=== PATIENT | male | born 1965 | race Caucasian/White ===

== ENCOUNTER 2017-10-03 06:08 | Emergency (ER) | payer OTHER ==
[2017-10-03] MEDS ORDERED: NORMAL SALINE 1000 ML 1,000 ML IV ONE ×2 (06:43→08:41)
[2017-10-03] MEDS ORDERED: MORPHINE SULFATE 10 MG/ML INJ IV ONE (06:56)
[2017-10-03] MEDS ORDERED: ONDANSETRON HCL INJ/PF 4 MG/2 ML SDV IV ONE (06:56)
--- NOTE | 2017-10-03 07:27 | RADIOLOGY REPORT (SQ) ---
EXAM DESCRIPTION: CT ABDOMEN WITHOUT IV CONTRAST CLINICAL HISTORY: 52 years Male, rlq pain Comparison: None. Technique: No contrast. Coronal and sagittal reformat. This exam was performed according to our departmental dose-optimization program, which includes automated exposure control, adjustment of the mA and/or kV according to patient size and/or use of iterative reconstruction technique.[facility]: Dose Right [facility]: CareDose [facility]: Dose Right [facility]: Teradose 4D [facility]: [employer] LIMITATIONS: None. Findings: Small calcified granuloma the spleen. Mild perinephric fat stranding. Small colonic diverticulosis. Mild disc desiccation. Normal appendix. Small bilateral inguinal fat only hernia. 0.3 center calcified granuloma right lower lobe. Unenhanced lower thorax, abdominopelvic structures, and musculoskeleton appear otherwise grossly unremarkable. Impression: No acute findings.
[2017-10-03 08:32] LABS: ABSOLUTE LYMPHOCYTES (AUTO) 0.9 10^3/uL (0.5-4.7); ABSOLUTE MONOCYTES (AUTO) 0.2 10^3/uL (0.1-1.4); ABSOLUTE NEUT (AUTO) 6.4 10^3/uL (1.7-8.2); BASOPHILS % (AUTO) 0.3 % (0-2); EOSINOPHILS % (AUTO) 0.2 % (0-6); HEMATOCRIT 47.8 % (37.9-51.0); HEMOGLOBIN 16.4 g/dL (13.5-17.0); LYMPHOCYTES % (AUTO) 11.4 % (13-45); MEAN CORPUSCULAR HEMOGLOBIN 30.6 pg (27.0-33.4); MEAN CORPUSCULAR HGB CONC 34.2 g/dL (32.0-36.0); MEAN CORPUSCULAR VOLUME 90 fl (80-97); PLATELET COUNT 263 10^3/uL (150-450); RED BLOOD COUNT 5.34 10^6/uL (4.35-5.55); RED CELL DISTRIBUTION WIDTH 13.2 % (11.5-14.0); SEGMENTED NEUTROPHILS % (AUTO) 85.1 % (42-78); TOTAL CELLS COUNTED % (AUTO) 100 %; WHITE BLOOD COUNT 7.5 10^3/uL (4.0-10.5)
[2017-10-03] MEDS ORDERED: KETOROLAC TROMETHAMINE INJ/PF 30 MG/1 ML SDV IV ONE (08:46)
[2017-10-03 08:59] LABS: ALANINE AMINOTRANSFERASE 31 U/L (21-72); ALBUMIN 4.7 g/dL (3.5-5.0); ALKALINE PHOSPHATASE 90 U/L (38-126); ANION GAP 12 (5-19); ASPARTATE AMINO TRANSFERASE 24 U/L (17-59); BILIRUBIN,DIRECT 0.2 mg/dL (0.0-0.4); BILIRUBIN,TOTAL 0.8 mg/dL (0.2-1.3); BLOOD UREA NITROGEN 20 mg/dL (7-20); CALCIUM 9.9 mg/dL (8.4-10.2); CARBON DIOXIDE 30 mmol/L (22-30); CHLORIDE 105 mmol/L (98-107); GLUCOSE 138 mg/dL (75-110); LIPASE 64.5 U/L (23-300); SODIUM 147.1 mmol/L (137-145); TOTAL PROTEIN 7.7 g/dL (6.3-8.2)
[2017-10-03 09:55] LABS: APPEARANCE,URINE CLEAR; BILIRUBIN,URINE NEGATIVE (NEGATIVE); COLOR,URINE YELLOW; GLUCOSE, URINE NEGATIVE (NEGATIVE); KETONES,URINE TRACE mg/dL (NEGATIVE); LEUKOCYTE ESTERASE,URINE NEGATIVE (NEGATIVE); NITRITE,URINE NEGATIVE (NEGATIVE); PROTEIN,URINE NEGATIVE (NEGATIVE); URINE SPECIFIC GRAVITY 1.021; UROBILINOGEN,URINE NEGATIVE mg/dL (<2.0)
[2017-10-03] MEDS ORDERED: DICYCLOMINE HCL INJ 20 MG/2 ML AMPULE IM ONE (10:41)
--- NOTE | 2017-10-03 10:44 | ER Document Report ---
ED General - General Chief Complaint: Abdominal Pain Stated Complaint: ABDOMINAL PAIN Time Seen by Provider: 10/03/17 06:26 TRAVEL OUTSIDE OF THE [place] IN LAST 30 DAYS: No - HPI Patient complains to provider of: Right lower quadrant abdominal pain Notes: Patient coming in for right lower quadrant abdominal pain onset earlier in the morning states initially intermittent and achy now continuous patient is rolling around the room states he cannot get to a comfortable position. Patient states pain with movement of the right leg as well. Denies any fevers chills states he has had some nausea and vomiting no diarrhea. Patient denies any recent antibiotics denies any dysuria denies a history of kidney stones. Patient denies any abdominal surgeries. Patient otherwise looks nontoxic - Related Data Allergies/Adverse Reactions: No Known Allergies Allergy (Unverified 10/03/17 06:13) Past Medical History - Social History Smoking Status: Unknown if Ever Smoked Family History: Reviewed & Not Pertinent Patient has suicidal ideation: No Patient has homicidal ideation: No Renal/ Medical History: Denies: Hx Peritoneal Dialysis Review of Systems - Review of Systems Constitutional: No symptoms reported EENT: No symptoms reported Cardiovascular: No symptoms reported Respiratory: No symptoms reported Gastrointestinal: Abdominal pain Genitourinary: No symptoms reported Male Genitourinary: No symptoms reported Musculoskeletal: No symptoms reported Skin: No symptoms reported Hematologic/Lymphatic: No symptoms reported Neurological/Psychological: No symptoms reported Physical Exam - Vital signs Vitals: Temp Pulse Resp BP Pulse Ox 97.5 F 50 L 20 130/84 H 100 10/03/17 06:16 10/03/17 06:16 10/03/17 06:16 10/03/17 06:16 10/03/17 06:16 Interpretation: Normal - General General appearance: Appears well, Alert - HEENT Head: Normocephalic, Atraumatic Eyes: Normal Pupils: PERRL - Respiratory Respiratory status: No respiratory distress Chest status: Nontender Breath sounds: Normal Chest palpation: Normal - Cardiovascular Rhythm: Regular Heart sounds: Normal auscultation Murmur: No - Abdominal Inspection: Normal Distension: No distension Bowel sounds: Normal Tenderness: Tender - Mild tenderness to palpation on the right lower quadrant. The right upper quadrant tenderness no McBurney's point tenderness no Higgins sign no guarding or rebound Organomegaly: No organomegaly - Back Back: Normal, Nontender. No: CVA tenderness - Extremities General upper extremity: Normal inspection, Nontender, Normal color, Normal ROM , Normal temperature General lower extremity: Normal inspection, Nontender, Normal color, Normal ROM , Normal temperature, Normal weight bearing. No: Ana's sign - Neurological Neuro grossly intact: Yes Cognition: Normal Orientation: AAOx4 [place] Coma Scale Eye Opening: Spontaneous [place] Coma Scale Verbal: Oriented [place] Coma Scale Motor: Obeys Commands [place] Coma Scale Total: 15 Speech: Normal Motor strength normal: LUE, RUE, LLE, RLE Sensory: Normal - Psychological Associated symptoms: Normal affect, Normal mood - Skin Skin Temperature: Warm Skin Moisture: Dry Skin Color: Normal Course - Re-evaluation Re-evalutation: 10/03/17 14:57 Patient's initial presentation were concerning for possible kidney stone. Patient difficult time and obtain urinalysis therefore went ahead with CT scan. CT scan does show some stranding around the kidneys which is nonspecific urinalysis does not show any signs of were able to evaluate the appendix normal appendix patient also has no significant white count no significant finding of laboratory studies. Possibilities patient is experiencing abdominal cramping with possible viral gastroenteritis for nausea vomiting is yet to experience any diarrhea. Patient will be treated for his pain patient will be discharged on follow-up primary care physician. The patient presents with abdominal pain without signs of peritonitis or other life-threatening or serious etiology. The patient appears stable for discharge and has been instructed to return immediately if the symptoms worsen in any way, or in 8-12hr if not improved for re-evaluation. The patient has been instructed to return if the symptoms worsen or change in any way. - Vital Signs Vital signs: Temp Pulse Resp BP Pulse Ox 97.7 F 50 L 15 126/75 H 99 10/03/17 11:09 10/03/17 06:16 10/03/17 11:09 10/03/17 11:09 10/03/17 11:09 - Laboratory Result Diagrams: 10/03/17 08:20 10/03/17 08:20 Laboratory results interpreted by me: 10/03/17 10/03/17 10/03/17 08:20 08:20 08:50 Seg Neutrophils % 85.1 H Lymphocytes % 11.4 L Sodium 147.1 H Glucose 138 H Urine Ketones TRACE H Discharge - Discharge Clinical Impression: Abdominal pain Qualifiers: Abdominal location: right lower quadrant Qualified Code(s): R10.31 - Right lower quadrant pain Nausea & vomiting Qualifiers: Vomiting type: unspecified Vomiting Intractability: unspecified Qualified Code( s): R11.2 - Nausea with vomiting, unspecified Condition: Good Disposition: HOME, SELF-CARE Instructions: Abdominal Pain ([facility]), Nausea or Vomiting, Nonspecific ([facility]) Additional Instructions: Your laboratory studies today CAT scan did not show any significant pathology does show some slight dehydration. Some your symptoms may be caused by a GI virus that is going through the community. Would recommend sticking to a clear liquid diet for the next 1224 hrs. and advancing to a bland diet recommend starchy foods such as crackers cereal and toast. Please use medication as prescribed. Zofran and Phenergan for any nausea. Bentyl for abdominal pain also recommend taking Tylenol Motrin for pain control to as well return to ER for any concerning issues. Prescriptions: Dicyclomine HCl [Bentyl 20 mg Tablet] 20 mg PO QID #30 tablet Ondansetron [Zofran Odt] 4 mg PO Q6 PRN #30 tab.rapdis PRN Reason: For Nausea/Vomiting Promethazine HCl [Phenergan 25 mg Tablet] 25 mg PO Q6 #30 tablet Forms: Return to Work
[2017-10-03 11:13] VITALS: BP 126/75
== END 2017-10-03 11:24 | disposition home or self-care (01) ==
LOC: ER 06:08
DX: R10.31 Right lower quadrant pain (principal); R11.2 Nausea with vomiting, unspecified
CPT/HCPCS: 99284; 96372; 96361; 96374; 96375; 36415; 83690; 85025; 80053; 81001; 76380; J0500; J1885; J2270; J2405; J7030